=== PATIENT | female | born 1975 | race Caucasian/White ===

== ENCOUNTER 2023-06-18 09:10 | Emergency (ER) | payer OTHER ==
[~2023-06-18] VITALS: Ht 165.1 cm; Wt 65.9 kg
[2023-06-18 09:13] VITALS: TEMP 99.7
[2023-06-18 09:30] LABS: COVID AG,FIA SOURCE NASAL SWAB
[2023-06-18] MEDS ORDERED: ACETAMINOPHEN 500 MG TABLET PO ONE (09:30)
[2023-06-18 10:10] LABS: INFLUENZA TYPE A NEGATIVE FOR TYPE A (NEGATIVE); INFLUENZA TYPE B NEGATIVE FOR TYPE B (NEGATIVE)
[2023-06-18 10:31] VITALS: BP 128/75; PULSE 74; RESP 16
== END 2023-06-18 12:31 | disposition home or self-care (01) ==
LOC: EMS 09:10
DX: J06.9 Acute upper respiratory infection, unspecified (principal); I10 Essential (primary) hypertension; Z20.822 Contact with and (suspected) exposure to COVID-19
CPT/HCPCS: 87804; 99283